=== PATIENT | male | born 1950 | race Native Hawaiian/Other Pacific Islander ===

== ENCOUNTER 2019-02-10 09:18 | Outpatient (CLI) | payer OTHER | END 2019-02-10 22:31 | disposition home or self-care (01) | LOC: RAD 09:18 | DX: R07.89 Other chest pain (principal) ==

== ENCOUNTER 2019-06-23 08:43 | Outpatient (CLI) | payer OTHER ==
[~2019-06-23] VITALS: Ht 177.8 cm; Wt 82.6 kg
[2019-06-23 08:45] VITALS: BP 14/75; TEMP 98.9
[2019-06-23 09:12] LABS: PLATELET COUNT 157 K/uL (142-355)
[2019-06-23 09:49] LABS: POTASSIUM 4.6 mmol/L (3.6-5.2)
[2019-06-23 11:15] VITALS: BP 152/82; TEMP 98.9
== END 2019-06-24 05:46 | disposition home or self-care (01) ==
LOC: INF 08:43
PROVIDERS: Internal Medicine
DX: E86.0 Dehydration (principal); T67.5XXA Heat exhaustion, unspecified, initial encounter
CPT/HCPCS: 80053; 85027; 96360; 96361

== ENCOUNTER 2019-07-10 08:30 | Observation (INO) | payer OTHER ==
[~2019-07-10] VITALS: Ht 177.8 cm; Wt 78.9 kg
[2019-07-10 10:42] LABS: PLATELET COUNT 176 K/uL (142-355)
[2019-07-10 11:03] LABS: POTASSIUM 5.1 mmol/L (3.6-5.2)
[2019-07-10 12:00] VITALS: BP 151/84; TEMP 98.9
[2019-07-10 16:00] VITALS: BP 120/72; TEMP 98.5
[2019-07-10] MEDS ORDERED: LISI10TA11 PO (16:03)
[2019-07-10] MEDS ORDERED: CLARITIN10 M1 PO (16:03)
[2019-07-10] MEDS ORDERED: PANTOPRAZOLE 40MG TA PO (16:04)
[2019-07-10 16:58] VITALS: BP 151/84; TEMP 98.9; Ht 177.8 cm; Wt 78.9 kg
[2019-07-10 20:00] VITALS: BP 142/75; TEMP 98.5
[2019-07-11] VITALS: BP 111/66; TEMP 98.6
[2019-07-11 03:56] VITALS: BP 98/58; TEMP 98.3
[2019-07-11 05:44] LABS: PLATELET COUNT 130 K/uL (142-355)
[2019-07-11 06:01] LABS: POTASSIUM 3.8 mmol/L (3.6-5.2)
[2019-07-11 08:09] VITALS: BP 152/81; TEMP 98.4
== END 2019-07-11 11:30 | disposition home or self-care (01) ==
LOC: MED/SURG 08:30
PROVIDERS: ADMIT Family Medicine
DX: E87.1 Hypo-osmolality and hyponatremia (principal); R41.0 Disorientation, unspecified; I10 Essential (primary) hypertension; R53.83 Other fatigue; R53.1 Weakness; N39.0 Urinary tract infection, site not specified; F10.20 Alcohol dependence, uncomplicated; J44.9 Chronic obstructive pulmonary disease, unspecified; M81.8 Other osteoporosis without current pathological fracture; R42 Dizziness and giddiness
CPT/HCPCS: 36415; 80053; 80320; 82140; 82550; 83880; 84484; 85027; 93005; 99220; G0378; G0379; J3490

== ENCOUNTER 2021-10-11 05:16 | Emergency (ER) | payer OTHER ==
[~2021-10-11] VITALS: Ht 175.3 cm; Wt 82.1 kg
[~2021-10-11 05:16] MED LIST: CLARITIN10 M1 PO; LISI10TA11 PO; PANTOPRAZOLE 40MG TA PO
[2021-10-11 05:22] VITALS: TEMP 97.4
[2021-10-11 06:06] LABS: PLATELET COUNT 141 K/uL (142-355)
[2021-10-11 06:17] LABS: POTASSIUM 4.3 mmol/L (3.6-5.2)
[2021-10-11 08:28] VITALS: BP 130/78
== END 2021-10-11 08:28 | disposition home or self-care (01) ==
LOC: ED 05:16
PROVIDERS: Emergency Medicine Emergency Medical Services
DX: R19.7 Diarrhea, unspecified (principal); E86.9 Volume depletion, unspecified
CPT/HCPCS: 36415; 80053; 81000; 83690; 84484; 85027; 93005; 96360; 99284

== ENCOUNTER 2021-10-28 16:05 | Emergency (ER) | payer OTHER ==
[~2021-10-28] VITALS: Ht 175.3 cm; Wt 82.1 kg
[2021-10-28 16:45] LABS: PLATELET COUNT 162 K/uL (142-355)
[2021-10-28 16:54] LABS: POTASSIUM 3.9 mmol/L (3.6-5.2)
[2021-10-28 16:59] LABS: PARTIAL THROMBOPLASTIN TIME 26.5 SECONDS (24.5-33.6)
[2021-10-28 19:15] VITALS: BP 142/62; TEMP 98.3
== END 2021-10-28 19:15 | disposition home or self-care (01) ==
LOC: ED 16:05
PROVIDERS: Hospitalist
DX: K21.9 Gastro-esophageal reflux disease without esophagitis (principal); R07.89 Other chest pain
CPT/HCPCS: 36415; 80053; 82550; 83880; 84484; 85027; 85610; 85730; 93005; 96374; 99284; J3490

== ENCOUNTER 2021-12-11 23:37 | Emergency (ER) | payer OTHER ==
[~2021-12-11] VITALS: Ht 175.3 cm; Wt 86.2 kg
[2021-12-12 00:49] LABS: PLATELET COUNT 154 K/uL (142-355)
[2021-12-12 01:03] LABS: POTASSIUM 3.5 mmol/L (3.6-5.2)
[2021-12-12 02:32] VITALS: BP 135/85; TEMP 99
== END 2021-12-12 02:32 | disposition home or self-care (01) ==
LOC: ED 23:37
PROVIDERS: Emergency Medicine
DX: J40 Bronchitis, not specified as acute or chronic (principal); R07.89 Other chest pain; Z20.822 Contact with and (suspected) exposure to COVID-19
CPT/HCPCS: 36415; 80053; 84484; 85027; 85379; 85610; 87502; 87635; 87651; 99283; U0003

== ENCOUNTER 2023-03-24 06:35 | Emergency (ER) | payer OTHER ==
[~2023-03-24] VITALS: Ht 175.3 cm; Wt 84.4 kg
[2023-03-24 06:35] VITALS: TEMP 99
[2023-03-24 07:38] LABS: PLATELET COUNT 122 K/uL (142-355)
[2023-03-24 07:47] LABS: POTASSIUM 4.8 mmol/L (3.6-5.2)
[2023-03-24 08:16] VITALS: BP 149/79
== END 2023-03-24 08:17 | disposition home or self-care (01) ==
LOC: ED 06:35
PROVIDERS: Emergency Medicine
DX: R42 Dizziness and giddiness (principal)
CPT/HCPCS: 36415; 80053; 84484; 85027; 93005; 99283

== ENCOUNTER 2023-03-30 08:36 | Outpatient (CLI) | payer OTHER | END 2023-03-30 19:19 | disposition home or self-care (01) | LOC: MRI 08:36 | PROVIDERS: ATTEND Physician Assistant | DX: R42 Dizziness and giddiness (principal) | CPT/HCPCS: A9576 ==

== ENCOUNTER 2023-06-28 08:03 | Outpatient (CLI) | payer OTHER | END 2023-06-28 20:34 | disposition home or self-care (01) | LOC: US 08:03 | PROVIDERS: ATTEND Physician Assistant | DX: R42 Dizziness and giddiness (principal); R01.1 Cardiac murmur, unspecified ==